=== PATIENT | male | born 1935 | race Caucasian/White ===

== ENCOUNTER 2017-08-31 23:27 | Inpatient (IN) | payer BC, MEDICARE ==
[2017-09-01] MEDS ORDERED: Pantoprazole IV* 40 MG IV ONE (00:01)
[2017-09-01 00:19] LABS: ABS Basophils 0.1 10^3/ul (0-0.2); ABS Eosinophils 0.1 10^3/ul (0-0.6); ABS Lymphocytes 1.4 10^3/ul (1.0-4.8); ABS Monocytes 0.9 10^3/ul (0-0.8); ABS Neutrophils 6.1 10^3/ul (1.5-7.7); ABS Nucleated RBC 0 10^3/ul; Eosinophil % 0.8 % (0-6); Hematocrit 35 % (42-52); Lymphocyte % 16.4 % (25-47); Mean Corpuscular HGB Conc 34 g/dl (31-36); Mean Corpuscular Hemoglobin 32 pg (27-31); Mean Corpuscular Volume 94 fL (80-94); Mean Platelet Volume 8.7 um3 (7.4-10.4); Nucleated Red Blood Cells % 0; Platelet Count 177 10^3/ul (150-450); Red Blood Count 3.72 10^6/ul (4.0-5.4); Red Cell Distribution Width 13 % (10.5-15); White Blood Count 8.6 10^3/ul (3.5-10.8)
[2017-09-01 00:37] LABS: EGFR Non-African American 58.7 (>60)
[2017-09-01] MEDS ORDERED: Clopidogrel TAB* 300 MG PO ONE (00:51)
[2017-09-01] MEDS ORDERED: Enoxaparin(*) 100 MG/ML SYR SUBCUT ONE (00:51)
--- NOTE | 2017-09-01 01:04 | ED ---
Soledad Hill Rebecca, scribed for Manav Sal MD on 09/01/17 at 0001 . HPI Chest Pain - HPI Summary HPI Summary: Pt is an 82 y/o M BIBA who presents to ED c/o midsternal CP without radiation that began suddenly at 2145 while sitting down, relaxing. Pain is characterized as heaviness and was severe at onset, lasting about an hour, and is now mild, ranked 2/10. Pt took 324 mg ASA at home and received 1 SL NTG en route which alleviated sx. Additionally c/o chills. Denies diaphoresis, N/V, SOB. No prior similar episodes. Failed a stress test about 1 month ago due to being unable to bring his heart rate up and had a nuclear one done, results unknown. At home, in [place], [place], is being worked up for dizziness spells with unsteady gait during which his BP does not change. Has a cardiac catheterization scheduled for 1 week from today. - History of Current Complaint Chief Complaint: EDChestWallPain Time Seen by Provider: 08/31/17 23:35 Hx Obtained From: Patient Onset/Duration: Started Hours Ago, Still Present Time of Onset: 21:45 Initial Severity: Severe Current Severity: Mild Pain Intensity: 2 Pain Scale Used: 0-10 Numeric Chest Pain Location: Mid Sternal Chest Pain Radiates: No Character: Heaviness Aggravating Factor(s): Nothing Alleviating Factor(s): Medication Associated Signs and Symptoms: Positive: Chills - Allergy/Home Medications Allergies/Adverse Reactions: Allergies Allergy/AdvReac Type Severity Reaction Status Date / Time No Known Allergies Allergy Verified 08/31/17 23:35 Home Medications: Home Medications Atorvastatin* 10 mg PO DAILY 08/31/17 [History Confirmed 08/31/17] Lisinopril 5 mg PO DAILY 08/31/17 [History Confirmed 08/31/17] Meclizine HCl 12.5 mg PO DAILY PRN 08/31/17 [History Confirmed 08/31/17] PMH/Surg Hx/FS Hx/Imm Hx Endocrine/Hematology History: Denies: Hx Diabetes Cardiovascular History: Denies: Hx Coronary Artery Disease, Hx Hypertension Infectious Disease History: No Infectious Disease History: Denies: Traveled Outside the [place] in Last 30 Days - Family History Known Family History: Negative: Diabetes - Social History Alcohol Use: None Substance Use Type: Reports: None Smoking Status (MU): Never Smoked Tobacco Review of Systems Positive: Chills. Negative: Skin Diaphoresis Positive: Chest Pain Negative: Shortness Of Breath Negative: Vomiting, Nausea All Other Systems Reviewed And Are Negative: Yes Physical Exam - Summary Physical Exam Summary: VITAL SIGNS: Reviewed. GENERAL: ~Patient is a well-developed and nourished male who is lying comfortable in the stretcher. Patient is not in any acute respiratory distress. HEAD AND FACE: No signs of trauma. No ecchymosis, hematomas or skull depressions. No sinus tenderness. EYES: PERRLA, EOMI x 2, No injected conjunctiva, no nystagmus. EARS: Hearing grossly intact. Ear canals and tympanic membranes are within normal limits. MOUTH: Oropharynx within normal limits. NECK: Supple, trachea is midline, no adenopathy, no JVD, no carotid bruit, no c- spine tenderness, neck with full ROM. CHEST: Symmetric, no tenderness at palpation LUNGS: Clear to auscultation bilaterally. No wheezing or crackles. CVS: Bradycardic, S1 and S2 present, no murmurs or gallops appreciated. ABDOMEN: Soft, non-tender. No signs of distention. No rebound no guarding, and no masses palpated. Bowel sounds are normal. EXTREMITIES: FROM in all major joints, no edema, no cyanosis or clubbing. NEURO: Alert and oriented x 3. No acute neurological deficits. Speech is normal and follows commands. SKIN: Dry and warm Triage Information Reviewed: Yes Vital Signs On Initial Exam: Initial Vitals Temp Pulse Resp BP Pulse Ox 99.2 F 56 18 138/70 98 08/31/17 23:35 08/31/17 23:35 08/31/17 23:35 08/31/17 23:35 08/31/17 23:35 Vital Signs Reviewed: Yes Diagnostics - Vital Signs Vital Signs Temp Pulse Resp BP Pulse Ox 08/31/17 23:35 99.2 F 56 18 138/70 98 - Laboratory Result Diagrams: 09/01/17 00:05 09/01/17 00:05 Lab Statement: Any lab studies that have been ordered have been reviewed, and results considered in the medical decision making process. - Radiology CXR Xray Interpretation: No Acute Changes - Pending official report. Radiology Interpretation Completed By: ED Physician - EKG 5909 Cardiac Rate: Bradycardia - 54 bpm EKG Rhythm: Sinus Bradycardia EKG Interpretation: Normal interval. Normal axis. No ischemic changes. Re-Evaluation - Re-Evaluation First Eval Re-Evaluation Time: 00:54 Change: Improved Comment: Pt is asleep with no pain at this time. Chest Pain Course/Dx - Course Assessment/Plan: Pt is an 82 y/o M BIBA who presents to ED c/o midsternal CP characterized as heaviness without radiation that began suddenly at 2145 while sitting down, relaxing. Pain was severe at onset, lasting about an hour, and is now mild, ranked 2/10. Pt took 324 mg ASA at home and received 1 SL NTG en route which alleviated sx. Additionally c/o chills. Denies diaphoresis, N/V, SOB. No prior similar episodes. Failed a stress test about 1 month ago due to being unable to bring his heart rate up and had a nuclear one done, results unknown. At home, in [place], [place], is being worked up for dizziness spells with unsteady gait during which his BP does not change. Has a cardiac catheterization scheduled for 1 week from today. Blood work was done with results including a creatinine of 1.19 and troponin of 0.27. EKG is sinus bradycardia with no ischemic changes. CXR is negative. In the ED course, pt received Plavix, Lovenox, and Protonix. Discussed care of pt with Dr. Lomeli who accepts pt for admission. Pt will be admitted with Dx of nonstemi. He understands and agrees. 40 minutes of critical care time. - Diagnoses Provider Diagnoses: Non-STEMI (non-ST elevated myocardial infarction) - Provider Notifications Discussed Care Of Patient With: Marcella Lomeli Time Discussed With Above Provider: 00:59 Instructed by Provider To: Other - Accepts pt for admission. - Critical Care Time Critical Care Time: 30-74 min - 40 minutes Discharge - Sign-Out/Discharge Documenting (check all that apply): Discharge/Admit/Transfer - Admit - Discharge Plan Condition: Fair Disposition: ADMITTED TO [facility] Referrals: Non Staff,Doctor [Primary Care Provider] - The documentation as recorded by the Soledad holliday Rebecca accurately reflects the service I personally performed and the decisions made by me, Manav Sal MD.
[2017-09-01] MEDS ORDERED: Al Hydrox/Mg Hydrox/Simet LIQ* 30 ML UDC PO PRN (01:22)
[2017-09-01] MEDS ORDERED: Acetaminophen TAB* 325 MG PO PRN (01:22)
[2017-09-01] MEDS ORDERED: Ondansetron 40 MG VIAL* 2 MG/ML 20 ML VIAL IV PRN (01:22)
[2017-09-01] MEDS ORDERED: Docusate CAP* 100 MG PO PRN (01:22)
[2017-09-01] MEDS ORDERED: Senna TAB PO PRN (01:22)
[2017-09-01] MEDS ORDERED: Nitroglycerin 2% OINT* 1 GM PAK TOPICAL ONE (01:25)
[2017-09-01] MEDS: NS 0.9% 1000 ML* 1,000 ML IV SCH ×2 (01:48→07:17)
--- NOTE | 2017-09-01 04:23 | HP ---
CC: Dr. Bakari Camarillo III in [place], [place] * HISTORY AND PHYSICAL: DATE OF ADMISSION: 09/01/17 TIME OF EVALUATION: 0100 PRIMARY CARE PHYSICIAN: Dr. Bakari Camarillo III in [place], [place]. CHIEF COMPLAINT: Chest pain. HISTORY OF PRESENT ILLNESS: This is an 82-year-old male with a past medical history of hyperlipidemia who presents to the emergency room with acute onset of chest pain. The patient states he is visiting in [place] for a week. Normally, he lives in [place], [place] where he has been followed by a harness racing handicapper where a few months ago he was having dizzy spells, he followed up with a neurologist. When the dizzy spells continued, they noted his heart rate was in the 40s. He was evaluated by Cardiology for possible pacemaker. He had an exercise stress test, but they could not elevate his heart rate enough. He had a nuclear stress test about a month ago and he was unsure of the results, but they were planning on doing a cardiac cath on 09/08/17 and to evaluate him for pacemaker placement in the setting of his bradycardia thought to be related to his dizzy spells. This evening, he was in his usual state of health. He ate dinner and he was playing [employer] in his phone around 9:30 p.m. when he began developing severe substernal chest pain, nonradiating, no associated shortness of breath, no nausea, no diaphoresis. He felt cold with tingling of his left fingers, he was concerned that he had some bluish discoloration of his hands. He took 4 baby aspirin with no improvement. At that time, he called EMS for further evaluation. The patient denies any change in his weight. No lower extremity swelling. No recent URI illness. No fever or chills. Otherwise, review of systems is negative. In the emergency room, the patient had labs and imaging. He was noted to have an elevated troponin. He was given Lovenox 90 mg subcu, Protonix 40 mg, and Plavix 300 mg and was referred to the hospitalist service for further evaluation. The patient states his chest pain has significantly improved. He does have a slight twinge in his left-sided chest area. PAST MEDICAL HISTORY: 1. Hyperlipidemia. 2. History of dizzy spells. 3. History of bradycardia. MEDICATIONS: 1. Atorvastatin 10 mg p.o. daily. 2. Lisinopril 5 mg p.o. daily. ALLERGIES: No known drug allergies. FAMILY HISTORY: Mother at the age of 96. She did have a pacemaker placement. Father , unknown. SOCIAL HISTORY: The patient as mentioned lives in [place], [place], with his , Randa, who is his healthcare proxy. He is vacationing in [place] for the week with other bicycle cyclists. 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 He quit smoking 50 years ago. He smoked a pack per day for 10 years. He drinks about 1 beer every few weeks. No illicit drug use. Code status is full code. REVIEW OF SYSTEMS: A 14-point review of systems as mentioned in the HPI. Otherwise, negative. PHYSICAL EXAMINATION GENERAL: In no acute distress, resting comfortably with his at the bedside. VITAL SIGNS: T-max 99.2, pulse rate 49, respiratory rate 16, oxygen saturation 97% on room air, blood pressure 136/65. HEENT: Head: Normocephalic. Pupils are equal and reactive. Anicteric. Oropharynx: Mucous membranes are moist. NECK: Supple. No lymphadenopathy. RESPIRATORY: Clear to auscultation. No wheezes, rhonchi or rales. CARDIAC: Regular rate and rhythm. Soft systolic murmur, most prominent at the left sternal base. No carotid bruits. The patient is noted to have bradycardia. ABDOMEN: Soft, nontender, nondistended. EXTREMITIES: No clubbing, cyanosis or edema. Noted to have significant varicosities over the lower extremity +2 DPs. NEUROLOGICAL: Alert and oriented x3. No gross focal neurologic deficits. DIAGNOSTIC STUDIES/LAB DATA: White count 8.6, hemoglobin 12, hematocrit 35, platelets 177. Sodium 139, potassium 4, chloride 106, bicarb 26, BUN 24, creatinine 1.19, glucose 128. Troponin is 0.27. Radiographic Data: Chest x-ray: Wet read unremarkable. EKG shows sinus bradycardia, flattening of T waves, otherwise unremarkable. No prior EKG to compare. ASSESSMENT: This is an 82-year-old male with past medical history of hyperlipidemia who presents to the emergency room with substernal chest pain and elevated troponin. Chest pain. Assessment: The patient's findings are consistent with an NSTEMI in the setting with elevated troponin and unremarkable EKG. His chest pain has significantly improved. He states he has a slight twinge. He has been worked up for these dizzy spells and question of a pacemaker placement and was actually scheduled to get a cardiac cath next week in [place], [place]. Plan: We will admit him for evaluation of his NSTEMI, keep him n.p.o. We will place a nitro patch on him to help resolve his chest pain. He was initiated on Lovenox in the ER. Follow up with cardiology regarding further anticoagulation. Continue him on a baby aspirin. We will hold off on any beta- blockers in the setting of his bradycardia, check a lipid panel in the morning, and contact Cardiology for consultation for possible and likely catheterization in the morning. CHRONIC MEDICAL PROBLEMS: Hyperlipidemia. Continue his atorvastatin. We will check a lipid panel in the morning. We will hold his lisinopril for now. He does have a small bump in his creatinine. It is unclear what his baseline is. FEN. As mentioned, n.p.o. We will place him on gentle IV fluids. DVT prophylaxis. The patient scores moderate risk. He is on heparin at therapeutic dose. Code status: Full code. PATIENT TIME: Greater than 35 minutes was spent doing history and physical, more than half the time was spent in direct patient contact. [id number]/[facility] #: [id number] TUNDE
[2017-09-01 05:57] LABS: EGFR Non-African American 66.3 (>60)
--- NOTE | 2017-09-01 06:26 | PN ---
Progress Note - Progress Note Date of Service: 09/01/17 Note: Per Dr. Bryant - Hold further lovenox until evaluation by cardiology.
[2017-09-01] MEDS ORDERED: Perflutren Lipid Microsphere* 3 ML VIAL ONE (07:45)
--- NOTE | 2017-09-01 08:01 | RAD ---
INDICATION: Chest pain COMPARISON: None. TECHNIQUE: Single AP portable view of the chest was obtained. FINDINGS: Image quality is compromised due to the relative inferiority of a portable chest x-ray. The heart and mediastinum exhibit normal size and contour. The lungs are grossly clear. There is no evidence of a large pleural effusion. Visualized bones are normal for the patient's age. IMPRESSION: No radiographic evidence for acute cardiopulmonary abnormality on this portable chest x-ray.
[2017-09-01] MEDS: Aspirin 81 mg CHEW TAB* 81 MG TAB.CHEW PO SCH (09:06)
--- NOTE | 2017-09-01 10:17 | PN ---
Subjective Date of Service: 09/01/17 Interval History: Pt is feeling well. He has no further chest pain. No SOB. Objective Active Medications: Acetaminophen (Tylenol Tab*) 650 mg PO Q4H PRN PRN Reason: FEVER/PAIN Al Hydrox/Mg Hydrox/Simethicone (Maalox Plus*) 30 ml PO Q6H PRN PRN Reason: INDIGESTION Aspirin (Aspirin 81 Mg Chew Tab*) 81 mg PO DAILY [facility] Last Admin: 09/01/17 09:06 Dose: 81 mg Atorvastatin Calcium (Lipitor*) 80 mg PO 1700 SHARON Diazepam (Valium Tab(*)) 5 mg PO ONCE ONE Stop: 09/01/17 11:01 Diphenhydramine HCl (Benadryl Po*) 25 mg PO ONCE ONE Stop: 09/01/17 11:01 Docusate Sodium (Colace Cap*) 100 mg PO BID PRN PRN Reason: CONSTIPATION Sodium Chloride (Ns 0.9% 1000 Ml*) 1,000 mls @ 100 mls/hr IV PER RATE [facility] Last Admin: 09/01/17 01:48 Dose: 100 mls/hr Ondansetron HCl (Zofran 40 Mg Vial*) 4 mg IV Q4H PRN PRN Reason: NAUSEA/VOMITING Senna (Senokot Tab*) 1 tab PO BID PRN PRN Reason: CONSTIPATION Vital Signs - 8 hr 09/01/17 09/01/17 09/01/17 02:14 02:58 08:00 Temperature 97.7 F Pulse Rate 54 52 Respiratory 16 16 14 Rate Blood Pressure 147/81 148/56 (mmHg) O2 Sat by Pulse 97 97 Oximetry 09/01/17 08:19 Temperature 97.3 F Pulse Rate 48 Respiratory 16 Rate Blood Pressure 129/57 (mmHg) O2 Sat by Pulse 96 Oximetry Oxygen Devices in Use Now: None Appearance: Elderly male sitting up in bed, NAD Eyes: No Scleral Icterus Ears/Nose/Mouth/Throat: Mucous Membranes Moist Respiratory: Symmetrical Chest Expansion and Respiratory Effort, Clear to Auscultation Cardiovascular: NL Sounds; No Murmurs; No JVD, No Edema, - - bradycardic but regular Abdominal: NL Sounds; No Tenderness; No Distention Extremities: No Clubbing, Cyanosis Skin: No Nodules or Sclerosis Neurological: Alert and Oriented x 3 Result Diagrams: 09/01/17 00:05 06/11/18 05:12 Assess/Plan/Problems-Billing Mr Herrera is an 82 yo M who has a h/o bradycardia (possibly symptomatic as pt has dizzy spells) and HLD who presented to the ER with c/o chest pain while at rest. He was found to have an elevated troponin and was admitted for NSTEMI. - Patient Problems (1) NSTEMI (non-ST elevated myocardial infarction) Current Visit: Yes Status: Acute Code(s): I21.4 - NON-ST ELEVATION (NSTEMI) MYOCARDIAL INFARCTION SNOMED Code(s): 133126459 Comment: The patient's troponin continues to climb. He was seen by Dr. Miller this AM and the plan is for cath today. Will continue ASA and plavix (plavix 300mg was given at 0056 this AM) so if to be continued will need to be ordered for tomorrow AM. No BBlocker as pt is bradycardic. Continue lipitor. (2) HLD (hyperlipidemia) Current Visit: Yes Status: Acute Code(s): E78.5 - HYPERLIPIDEMIA, UNSPECIFIED SNOMED Code(s): 05148034 Comment: Continue lipitor. (3) Bradycardia Current Visit: Yes Status: Acute Code(s): R00.1 - BRADYCARDIA, UNSPECIFIED SNOMED Code(s): 92418768 Comment: The patient has a h/o being bradycardic. He is asymptomatic at this time but he has been having dizzy spells intermittently at home. He was being worked up for possible pacemaker. (4) DVT prophylaxis Current Visit: Yes Status: Acute Code(s): TTG6703 - SNOMED Code(s): 575295751 Comment: pt got 1mg/kd lovenox at 0057 this AM. (5) Full code status Current Visit: Yes Status: Acute Code(s): Z78.9 - OTHER SPECIFIED HEALTH STATUS SNOMED Code(s): 430161470
[2017-09-01] MEDS ORDERED: Diazepam TAB(*) 5 MG PO ONE (11:00)
[2017-09-01] MEDS ORDERED: diPHENhydraMINE PO* 25 MG PO ONE (11:00)
--- NOTE | 2017-09-01 11:10 | ECHO ---
Patient: VANESSA WHITLEY [facility] Rec#: [id number] : 1935 Date: 09/01/2017 Age: 82y Height: 195.58 cm / 77.0 in Weight: 90.72 kg / 199.9 lbs Sex: M BSA: 2.24 Room#: [facility] Admit Date#: 09/01/2017 Type: Inpatient Referring: Marcella Lomeli Reading: Eliezer Miller MD [employer] Trimming Machine Operator: Adrienne Leach [facility] Transthoracic Echocardiogram Indication: NSTEMI BP: 148/56 HR: 52 Rhythm: Bradycardia Findings History: HLD,bradycardia,dizziness. Technical Comments: The study quality is good. Definity used to enhance images. Left Ventricle: The left ventricular chamber size is normal. There is a focal wall motion abnormality present. There is mildly decreased left ventricular systolic function. The estimated ejection fraction is 40-45%. There is no consistent Doppler evidence of clinically significant diastolic dysfunction. The mid anteroseptal, mid anterior, mid anterolateral, apical anterior, and apical lateral wall segments are hypokinetic (score 2). Overall wallmotion score index is 2.00 Left Atrium: The left atrial chamber size is normal. Right Ventricle: The right ventricular cavity size is normal. The right ventricular global systolic function is normal. Right Atrium: The right atrium is mildly dilated. Aortic Valve: The aortic valve appears bicuspid. There is mild aortic regurgitation. There is no evidence of aortic stenosis. Mitral Valve: The mitral valve leaflets appear normal. There is mild mitral regurgitation. There is no evidence of mitral stenosis. Tricuspid Valve: The tricuspid valve leaflets are normal. There is a physiologic tricuspid regurgitation. Unable to estimate the right ventricular systolic pressure. There is no tricuspid stenosis. Pulmonic Valve: The pulmonic valve appears normal. There is trace to mild pulmonic regurgitation. There is no pulmonic stenosis. Pericardium: The pericardium appears normal. Aorta: The ascending aorta is not well visualized. There is mild dilatation of the aortic arch. There is mild dilatation of the aortic root. Pulmonary Artery: The main pulmonary artery appears normal. Venous: The inferior vena cava appears normal in size. There is a greater than 50% respiratory change in the inferior vena cava dimension. Contrast: Definity was used to optimize study. A total of 3 ml used. Intravenous contrast was used to enhance endocardial border definition. Conclusions There is mildly decreased left ventricular systolic function. There is a focal wall motion abnormality present. The estimated ejection fraction is 40-45%. The mid anteroseptal, mid anterior, mid anterolateral, apical anterior, and apical lateral wall segments are hypokinetic (score 2). The right ventricular global systolic function is normal. There is mild aortic regurgitation. There is no evidence of aortic stenosis. There is mild mitral regurgitation. There is a physiologic tricuspid regurgitation. Unable to estimate the right ventricular systolic pressure. The pericardium appears normal. Measurements Name Value Normal Range RVIDd (AP) 2D 2.8 cm (0.9 - 2.6) RVDdMajor (2D) 3.4 cm (2.2 - 4.4) RAd ISD 4CH 5.2 cm (3.4 - 4.9) RA (A4C)W 5.1 cm (2.9 - 4.6) IVSd (2D) 0.7 cm (0.6 - 1) LVPWd (2D) 0.8 cm (0.6 - 1) LVIDd (2D) 4.3 cm (3.6 - 5.4) LVIDs (2D) 3.3 cm - LV FS (2D) 22 % (25 - 45) Aortic Annulus 2 cm (1.4 - 2.6) Ao root diameter (2D) 3.7 cm (2.1 - 3.5) Aortic arch 3.8 cm (1.8 - 3.4) Descending Ao 0.6 cm - LA dimension (AP) 2D 3.7 cm (2.3 - 3.8) LAd ISD 4CH 6 cm (2.9 - 5.3) LA ISD 4CH W 4.6 cm (2.5 - 4.5) Name Value Normal Range LA ESV SP 4CH (A/L) 66 ml - LA ESV SP 2CH (A/L) 60 ml - LA ESV BP (A/L) 63 ml - LA ESV BP (A/L) index 28.3 ml/m2 - LA ESV SP 4CH (MOD) 61 ml - LA ESV SP 2CH (MOD) 57 ml - Name Value Normal Range MV E-wave Vmax 1 m/sec - MV deceleration time 237 msec - MV A-wave Vmax 1.2 m/sec - MV E:A ratio 0.9 ratio - Name Value Normal Range AV Vmax 1.6 m/sec - AV VTI 43.4 cm - AV peak gradient 10.06 mmHg - AV mean gradient 5.22 mmHg - LVOT Vmax 1.5 m/sec - LVOT VTI 31.6 cm - LVOT peak gradient 8.47 mmHg - LVOT mean gradient 2.79 mmHg - AR PHT 900 msec - AR peak gradient 22.12 mmHg - Name Value Normal Range MR Vmax 3.7 m/sec - MR VTI 160.62 cm - Name Value Normal Range IVC diameter 2.1 cm - Name Value Normal Range PV Vmax 0.9 m/sec - PV peak gradient 3.57 mmHg - Wallmotion BAS Not Seen BA Not Seen BAL Not Seen SANDRA Not Seen BI Not Seen BIS Not Seen MAS Hypokinetic MA Hypokinetic MAL Hypokinetic MIL Not Seen WI Not Seen MIS Not Seen Not Seen AA Hypokinetic AL Hypokinetic AI Not Seen APEX Not Seen
[2017-09-01] MEDS ORDERED: fentaNYL* 50 MCG/ML 2 ML VIAL (100 MCG VIAL) ONE (11:57)
[2017-09-01] MEDS ORDERED: Heparin 2 UNITS/ML IVPREMIX* 2,000 ML IV ONE (11:57)
[2017-09-01] MEDS ORDERED: Lidocaine 1% INJ* 10 MG/ML 30 ML SDV ONE (11:57)
[2017-09-01] MEDS ORDERED: Iohexol 350 (CONTRAST) 200 ML MDV IV ONE (11:57)
[2017-09-01] MEDS ORDERED: Heparin(*) 1000 UNIT/ML 10 ML VIAL CATH LAB IV ONE (11:59)
[2017-09-01] MEDS ORDERED: Midazolam* 1 MG/ML 10 ML VIAL (10 MG) ONE (11:59)
[2017-09-01] MEDS ORDERED: VERAPAMIL 2.5 MG/ML 2 ML VIAL ** 5 mg/2 ml ONE (11:59)
[2017-09-01] MEDS ORDERED: nitroGLYCERIN DRIP* 25,000 MCG/250 ML BTL ONE (11:59)
[2017-09-01 12:10] LABS: INR 1.1 (0.77-1.02)
[2017-09-01 12:24] LABS: EGFR Non-African American 85.4 (>60)
[2017-09-01] MEDS ORDERED: Ticagrelor* 90 MG TAB PO ONE (12:46)
[2017-09-01] MEDS ORDERED: Iodixanol* (CONTRAST) 320 MG/ML 100 ML SDV ONE (12:54)
[2017-09-01] MEDS ORDERED: Enoxaparin(*) 100 MG/ML SYR SUBCUT SCH (13:00)
[2017-09-01] MEDS ORDERED: Nitroglycerin TAB 0.4 MG* 0.4 MG TAB SL PRN (13:50)
[2017-09-01] MEDS: NS 0.9% 1000 ML* 1,000 ML IV ONE ×2 (15:59→16:02)
[2017-09-01] MEDS: Atorvastatin* 80 MG TAB PO SCH (18:24)
[2017-09-01] MEDS: Ticagrelor* 90 MG TAB PO SCH (20:25)
--- NOTE | 2017-09-01 22:13 | CONS ---
CC: Dr. Bakari Camarillo III, [facility] [place], [place] * CARDIOLOGY CONSULTATION: DATE OF CONSULT: 09/01/17 INDICATION FOR CONSULT: NSTEMI, chest pain. HISTORY OF PRESENT ILLNESS: The patient is an 82-year-old gentleman with a history of hyperlipidemia, bradycardia, and a history of TIA in the past, who came to the emergency room because of anginal-type chest pain. The patient states that he is from the [facility] and recently underwent a cardiac evaluation, please see below for details. The patient was up in the [place] area while visiting, when he started having chest pain, diaphoresis. The patient continued to have the discomfort and came to the emergency room. In the emergency room, the patient did not have any ischemic EKG changes, but had elevated troponin levels. He was admitted to the hospital with an acute coronary syndrome. The patient does follow with a business administrator in the [facility]. He was noted to have episodes of dizzy spells and was found to have a heart rate down in the 40s. The patient underwent an exercise nuclear stress test, but was unable to achieve heart rate. He subsequently had a chemical stress test, which was reportedly abnormal; I do not have those details. His business administrator set him up for a cardiac catheterization for next week. PAST MEDICAL HISTORY: Significant for hyperlipidemia, bradycardia. OUTPATIENT MEDICATIONS: 1. Atorvastatin 10 mg a day. 2. Lisinopril 5 mg a day. He does not take an aspirin a day. ALLERGIES: No known drug allergies. FAMILY HISTORY: Mother at the age of 96. She did have a history of pacemaker implantation. Father's is of unknown cause. 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 He is . He quit smoking 50 years ago. He does get regular exercise. He drinks 1 beer a week. PHYSICAL EXAM: Height 6 feet 5 inches, weight 210 pounds. Temperature 99.6, heart rate 50, blood pressure 152/65, respiratory rate is 19, oxygen saturation 98% on room air. Sclerae anicteric. Oropharynx is pink without erythema. Carotids are 2+ without bruits. JVD is normal. Thyroid is normal. Cardiac Exam: S1, S2 without any murmurs, rubs, or gallops. PMI is normal. Lungs are clear to auscultation bilateral. There is no dullness to percussion. Abdomen is soft, nontender, nondistended with normoactive bowel sounds. Extremities show no edema. He has 2+ pulses throughout. The patient is awake, alert, and oriented. He moves all 4 extremities equally. DIAGNOSTIC STUDIES/LAB DATA: CBC: Within normal limits, hemoglobin 12, hematocrit 35, platelet count 177. Chemistries within normal limits, BUN 24, creatinine 1.19. AST and ALT are normal. Initial troponin level 0.27, peak troponin level of 4. LDL of 26, HDL of 33, total cholesterol 79. The patient had an echocardiogram, which showed normal LV size with mild to moderately reduced LV systolic function, ejection fraction of 40%. He had mid anterior and distal anterior wall and distal anterolateral wall hypokinesis. Ultimately, we got the report of his stress test. His stress test showed ischemia to his anterior and anteroapical soto. IMPRESSION AND PLAN: This is an 82-year-old gentleman, who is admitted to the hospital with acute coronary syndrome. Again, the patient had abnormal stress test within the last month. Currently, the patient is pain free. His troponins have been rising since his hospitalization. The patient was given Lovenox and Plavix in the emergency room. For now, my recommendation is the patient undergo cardiac catheterization. The risks and benefits of this were described in great detail, and the patient is willing to proceed. [id number]/[facility] #: [id number] MTDD
--- NOTE | 2017-09-02 07:50 | CATH ---
STENT REPORT: DATE OF PROCEDURE: 09/01/17 - ROOM #[id number] INTEGRATED SPECIALIST: Dr. Miller. PROCEDURE PERFORMED: Stent placement, LAD 2.75 x 12, Synergy drug-eluting stent , postdilated with 2.75 x 12 NC to 18 atmospheres. HISTORY: An 82-year-old male visiting from out of town, admitted with troponin - positive ACS/vfs-CN-cglqnzzmo infarct. Recent stress imaging in [place] demonstrated a moderate anteroapical perfusion defect. Diagnostic catheterization by Dr. Miller via the radial approach demonstrated a culprit mid LAD stenosis with calcification as well as intermediate RCA stenosis. The RCA was not treated given the absence of inferior wall ischemia on recent imaging. PROCEDURE ACCESS: Right radial artery sheath 6F slender placed by Dr. Miller. INTERVENTIONAL MEDICATIONS: 1. Heparin 3000 units, 3000 units. 2. Brilinta 180 mg p.o. loading dose. GUIDING CATHETER: 6F VL 3.5, wire 14 BMW. The stent would not cross primarily , therefore the angulated calcified LAD lesion was predilated with a 2.5 x 12 balloon to full expansion at 12 atmospheres. The LAD was then stented with a 2.75 x 12 Synergy drug-eluting stent deployed at 11 atmospheres, and then postdilated with a 2.75 x 12 NC balloon to 18 atmospheres for a total of 49 seconds. A hemostatic band was used for hemostasis. HEMODYNAMICS: For the diagnostic portion, see Dr. Miller's report. Final BP 139 /65. ANGIOGRAPHY: For the diagnostic portion, see Dr. Miller's report. Pre- intervention, the LAD had a fairly short but angulated calcified 80% stenosis after the first diagonal, proximal to the first septal. After stent placement, there is no residual stenosis, there is MARQUISE 3 flow, no dissection. CONCLUSION: Culprit LAD stenosis with non-ST elevation infarct presentation, excellent angiographic results with drug-eluting stent placement. [id number]/[facility] #: [id number] [facility]
[2017-09-02] MEDS: Ticagrelor* 90 MG TAB PO SCH ×2 (08:30→20:07)
[2017-09-02] MEDS: Aspirin 81 mg CHEW TAB* 81 MG TAB.CHEW PO SCH (08:30)
--- NOTE | 2017-09-02 13:23 | CATH ---
CARDIAC CATHETERIZATION NOTE: DATE OF PROCEDURE: 09/01/17 PROCEDURE: Cardiac catheterization including coronary angiography. INDICATION: NSTEMI, chest pain. The patient is an 82-year-old gentleman with very little past medical history who was admitted to the hospital with chest pain. He had elevated troponin levels. The patient had no ischemic EKG changes. His echocardiogram showed severe anterior apical hypokinesis with ejection fraction of 40% to 45%. Cardiac catheterization was recommended. DESCRIPTION OF PROCEDURE: The patient was brought to the cardiac catheterization lab in a fasting st ate. Informed consent had been obtained prior to the procedure. All labs had been reviewed. The pat ient was placed supine in the catheterization table. His right wrist area was prepped and draped in the usual fashion. 1% lidocaine was used for local anesthesia. The right radial artery was entered by a Seldinger technique and a guidewire was placed. Over the guidewire, a 6-Cypriot hydrophilic de santiago th was placed. The patient had an infusion of heparin, verapamil, and nitroglycerin. The patient underwent coronary angiography using a 6-Cypriot TIG catheter. At the end of the procedur e, the patient underwent stenting of his LAD. Please see that report from Dr. Mackay. A total of 4. 2 minutes of fluoro time was used. A total of 50 cc of Visipaque dye was used. FINDINGS: Left main: The left main was very short. It quickly bifurcated into the LAD and circumfle x. There was no evidence of stenosis. Left anterior descending artery: The LAD was normal in size. It gave off 2 diagonal vessels. The p roximal low LAD had minimal calcification. No evidence of stenosis. The first diagonal vessel was w ithout disease. Just after the first diagonal, there was an eccentric 80% stenosis of the LAD. It w as mildly calcified. The remainder of the LAD was without disease. Left circumflex artery: The circumflex artery was normal in size. It gave off 2 obtuse marginal bra nches. There was no evidence of stenosis. Right coronary artery: The RCA was normal in size. It was a dominant vessel. It gave off PDA. The proximal RCA had a 40% stenosis. The mid right coronary artery had a 60% stenosis with a small aneu rysmal formation after the stenosis. The remainder of the vessel was without disease. IMPRESSION: 1. Critical stenosis of the mid LAD just after the diagonal vessel with an 80%. 2. A 60% stenosis of the mid right coronary artery with a small aneurysmal formation just after the stenosis. 3. No evidence of coronary artery disease in the left circumflex artery. RECOMMENDATIONS: The patient will undergo angioplasty and stenting of his LAD with Dr. Mackay. [id number]/[facility] #: [id number]
--- NOTE | 2017-09-02 14:30 | PN ---
Subjective Date of Service: 09/02/17 Interval History: Pt is feeling well. He has no chest pain/SOB. He has not been up walking much today. Objective Active Medications: Acetaminophen (Tylenol Tab*) 650 mg PO Q4H PRN PRN Reason: FEVER/PAIN Al Hydrox/Mg Hydrox/Simethicone (Maalox Plus*) 30 ml PO Q6H PRN PRN Reason: INDIGESTION Aspirin (Aspirin 81 Mg Chew Tab*) 81 mg PO DAILY [facility] Last Admin: 09/02/17 08:30 Dose: 81 mg Atorvastatin Calcium (Lipitor*) 80 mg PO 1700 [facility] Last Admin: 09/01/17 18:24 Dose: 80 mg Docusate Sodium (Colace Cap*) 100 mg PO BID PRN PRN Reason: CONSTIPATION Nitroglycerin (Nitroglycerin Tab 0.4 Mg*) 0.4 mg SL Q5M PRN PRN Reason: ANGINA Ondansetron HCl (Zofran 40 Mg Vial*) 4 mg IV Q4H PRN PRN Reason: NAUSEA/VOMITING Senna (Senokot Tab*) 1 tab PO BID PRN PRN Reason: CONSTIPATION Ticagrelor (Brilinta*) 90 mg PO BID [facility] Last Admin: 09/02/17 08:30 Dose: 90 mg Vital Signs - 8 hr 09/02/17 09/02/17 09/02/17 07:00 07:36 08:00 Temperature 100 F Pulse Rate 44 48 Respiratory 16 10 Rate Blood Pressure 120/58 123/51 (mmHg) O2 Sat by Pulse 96 93 Oximetry 09/02/17 09/02/17 09/02/17 09:00 10:00 10:01 Temperature Pulse Rate 51 51 53 Respiratory 26 18 12 Rate Blood Pressure 140/51 126/59 (mmHg) O2 Sat by Pulse 97 96 97 Oximetry 09/02/17 09/02/17 09/02/17 11:00 12:00 12:34 Temperature 98.6 F 98.0 F Pulse Rate 48 45 51 Respiratory 18 19 16 Rate Blood Pressure 125/56 137/59 142/54 (mmHg) O2 Sat by Pulse 97 99 100 Oximetry 09/02/17 12:52 Temperature 98 F Pulse Rate 51 Respiratory 16 Rate Blood Pressure 142/54 (mmHg) O2 Sat by Pulse 100 Oximetry Oxygen Devices in Use Now: None Appearance: Elderly male sitting up in a chair, NAD Eyes: No Scleral Icterus Ears/Nose/Mouth/Throat: Mucous Membranes Moist Respiratory: Symmetrical Chest Expansion and Respiratory Effort, Clear to Auscultation Cardiovascular: NL Sounds; No Murmurs; No JVD, RRR, No Edema, - - R wrist with small hematoma Abdominal: NL Sounds; No Tenderness; No Distention Extremities: No Clubbing, Cyanosis Skin: No Nodules or Sclerosis Neurological: Alert and Oriented x 3 Result Diagrams: 09/01/17 00:05 09/02/17 05:03 Microbiology and Other Data: Microbiology 09/01/17 16:30 Nasal Screen MRSA (PCR)(VIVI) - Final Nasal Mrsa Not Detected Assess/Plan/Problems-Billing Mr Herrera is an 82 yo M who has a h/o bradycardia (possibly symptomatic as pt has dizzy spells) and HLD who presented to the ER with c/o chest pain while at rest. He was found to have an elevated troponin and was admitted for NSTEMI. - Patient Problems (1) NSTEMI (non-ST elevated myocardial infarction) Current Visit: Yes Status: Acute Code(s): I21.4 - NON-ST ELEVATION (NSTEMI) MYOCARDIAL INFARCTION SNOMED Code(s): 285621302 Comment: Trop peaked at 16.36. He received a stent to the LAD. He will continue ASA and brilinta. Continue lipitor. No BBlocker secondary to bradycardia, will resume lisinopril today. (2) HLD (hyperlipidemia) Current Visit: Yes Status: Acute Code(s): E78.5 - HYPERLIPIDEMIA, UNSPECIFIED SNOMED Code(s): 47060073 Comment: Continue lipitor at higher dose. (3) Bradycardia Current Visit: Yes Status: Acute Code(s): R00.1 - BRADYCARDIA, UNSPECIFIED SNOMED Code(s): 50078199 Comment: The patient has a h/o being bradycardic. He is asymptomatic at this time but he has been having dizzy spells intermittently at home. He was being worked up for possible pacemaker. (4) DVT prophylaxis Current Visit: Yes Status: Acute Code(s): SCW6153 - SNOMED Code(s): 100226715 Comment: start SQ heparin tonight (5) Full code status Current Visit: Yes Status: Acute Code(s): Z78.9 - OTHER SPECIFIED HEALTH STATUS SNOMED Code(s): 098214685
[2017-09-02] MEDS: Atorvastatin* 80 MG TAB PO SCH (16:59)
[2017-09-02] MEDS: Heparin VIAL(*) 5000 UNITS/ML VIAL (FIVE THOUSAND) SUBCUT SCH (20:03)
[2017-09-03 08:08] VITALS: BP 129/55
[2017-09-03] MEDS: Aspirin 81 mg CHEW TAB* 81 MG TAB.CHEW PO SCH (08:08)
[2017-09-03] MEDS: Ticagrelor* 90 MG TAB PO SCH (08:09)
[2017-09-03] MEDS: Heparin VIAL(*) 5000 UNITS/ML VIAL (FIVE THOUSAND) SUBCUT SCH (08:11)
[2017-09-03] MEDS ORDERED: Lisinopril TAB* 5 MG PO SCH (09:00)
--- NOTE | 2017-09-03 09:47 | PN ---
Subjective Date of Service: 09/03/17 - CC: CP, resolved Interval History: The patient denies recurrence of chest pain. No dizziness. No pain in hand/wrist. Wants to get out of the hospital. Medications Active Medications: Acetaminophen (Tylenol Tab*) 650 mg PO Q4H PRN PRN Reason: FEVER/PAIN Al Hydrox/Mg Hydrox/Simethicone (Maalox Plus*) 30 ml PO Q6H PRN PRN Reason: INDIGESTION Aspirin (Aspirin 81 Mg Chew Tab*) 81 mg PO DAILY [facility] Last Admin: 09/03/17 08:08 Dose: 81 mg Atorvastatin Calcium (Lipitor*) 80 mg PO 1700 [facility] Last Admin: 09/02/17 16:59 Dose: 80 mg Docusate Sodium (Colace Cap*) 100 mg PO BID PRN PRN Reason: CONSTIPATION Heparin Sodium (Porcine) (Heparin Vial(*)) 5,000 units SUBCUT Q12HR [facility] Last Admin: 09/03/17 08:11 Dose: Not Given Lisinopril (Prinivil Tab*) 5 mg PO DAILY [facility] Last Admin: 09/03/17 08:08 Dose: 5 mg Nitroglycerin (Nitroglycerin Tab 0.4 Mg*) 0.4 mg SL Q5M PRN PRN Reason: ANGINA Ondansetron HCl (Zofran 40 Mg Vial*) 4 mg IV Q4H PRN PRN Reason: NAUSEA/VOMITING Senna (Senokot Tab*) 1 tab PO BID PRN PRN Reason: CONSTIPATION Ticagrelor (Brilinta*) 90 mg PO BID [facility] Last Admin: 09/03/17 08:09 Dose: 90 mg Objective Vital Signs: Temp Pulse Resp BP Pulse Ox 100.1 F 48 16 129/55 98 09/03/17 08:03 09/03/17 08:03 09/03/17 08:03 09/03/17 08:03 09/03/17 08:03 Oxygen Devices in Use Now: None Appearance: Tall lean elderly male, lying 40 degrees, comfortable in appearance. Eyes: No Scleral Icterus, PERRLA Ears/Nose/Mouth/Throat: NL Teeth, Lips, Gums, Mucous Membranes Moist Neck: NL Appearance and Movements; NL JVP, Trachea Midline Respiratory: Symmetrical Chest Expansion and Respiratory Effort, Clear to Auscultation Cardiovascular: NL Sounds; No Murmurs; No JVD, RRR Abdominal: NL Sounds; No Tenderness; No Distention Extremities: No Edema - Right wrist cath site healing well, good distal radial pulse. Skin: No Rash or Ulcers Neurological: Alert and Oriented x 3, NL Gait Lines/Tubes/Other Access: Clean, Dry and Intact Peripheral IV Laboratory Results: 09/02/17 05:03 INR (Anticoag Therapy) 1.10 (0.77-1.02) H 09/01/17 11:45 APTT 33.5 seconds (26.0-36.3) 09/01/17 11:45 Total Bilirubin 0.50 mg/dL (0.2-1.0) 09/01/17 00:05 AST 33 U/L (13-39) 09/01/17 00:05 ALT 24 U/L (7-52) 09/01/17 00:05 Alkaline Phosphatase 42 U/L (34-104) 09/01/17 00:05 Total Protein 6.5 g/dL (6.4-8.9) 09/01/17 00:05 Albumin 3.7 g/dL (3.2-5.2) 09/01/17 00:05 Globulin 2.8 g/dL (2-4) 09/01/17 00:05 Albumin/Globulin Ratio 1.3 (1-3) 09/01/17 00:05 Triglycerides 96 mg/dL 09/01/17 05:12 Cholesterol 79 mg/dL 09/01/17 05:12 LDL Cholesterol 26 mg/dL 09/01/17 05:12 HDL Cholesterol 33.4 mg/dL 09/01/17 05:12 09/01/17 09/01/17 09/01/17 03:03 05:12 11:57 Troponin I 1.65 H* 4.11 H* 14.05 H* 09/01/17 09/02/17 20:30 01:55 Troponin I 16.36 H* 12.81 H* Diagnostic Imaging: Cardiac Catheterzation 09/01/17: 95% LAD occlusion to stent 60% RCA occlusion, medical management. Echo: EF 40-45%, anterior wall hypok. EKG Data: 09/03/17: sinus bradycardia 50 bpm, deeply inverted T waves precordial leads ( present on admission, biphasic yesterday, back today). Assessment/Plan 82 yo who presented with CP, NSTEMI, peak troponin of 16 found to have 2 vessel CAD, now day 2 post stenting to LAD and on medical management for moderate RCA occlusion. 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 CAD: CP free post stent. OK for discharge on current medications. I emphasized the importance of taking Brilinta, new medications even though traveling. Agree with aggressive lipid lowering and LDL well controlled. BP adequate control. For RCA lesion, pain free, can f/u with primary yardage tufting machine operator. Cardiomyopathy: Continue ACEI May improve post stent, can f/u with regular yardage tufting machine operator. Bradycardia: Mild, not dizzy, plan follow up with his regular yardage tufting machine operator.
--- NOTE | 2017-09-03 14:06 | DS ---
CC: Dr. Bakari Camarillo at [facility], fax# [phone] * CC: Dr. Shruthi Saenz at [facility] in [facility], fax# [phone] * DISCHARGE SUMMARY: DATE OF ADMISSION: 09/01/17 DATE OF DISCHARGE: 09/03/17 PRIMARY CARE PROVIDER: Dr. Bakari Camarillo at [facility]. CREDIT REVIEW ANALYST: Dr. Shruthi Saenz at [facility]. PRINCIPAL DIAGNOSIS: Weo-GW-yyjgviyja myocardial infarction. SECONDARY DIAGNOSES: 1. Hyperlipidemia. 2. Hypertension. DISCHARGE MEDICATIONS: 1. Meclizine 12.5 mg p.o. daily p.r.n. dizziness. 2. Lisinopril 5 mg p.o. daily. 3. Brilinta 90 mg p.o. twice daily (new). 4. Lipitor 80 mg p.o. q.h.s. (new). 5. Aspirin 81 mg p.o. daily (new). HOSPITAL COURSE: Mr. Puckett is an 82-year-old who was visiting the [facility] when he suddenly developed severe substernal chest pain that was nonradiating and not associated with any shortness of breath, nausea, or diaphoresis. He felt as if his fingers were cold and tingly and slightly cyanotic and therefore he presented to the emergency room for evaluation. In the emergency room, the patient was noted to have an elevated troponin of 0.27. He was treated with Lovenox, Protonix and 300 mg of Plavix. The patient was admitted to the hospitalist service for management of the yqr-VK-ayqfezgrg CA. Cardiology consultation performed later that day indicated the need for cardiac catheterization. The patient ultimately underwent cardiac catheterization and stenting to an LAD lesion. The patient has been doing quite well postcardiac catheterization. He also underwent transthoracic echocardiogram which revealed an estimated ejection fraction of 40% to 45% with mid anteroseptal, mid anterior , mid anterolateral, apical anterior, and apical lateral wall segments being hypokinetic. The right ventricular global systolic function was reported to be normal. There was evidence of mild aortic regurgitation, no aortic stenosis, mild mitral regurgitation and physiologic tricuspid regurgitation. The right ventricular systolic pressure was unable to be estimated. The patient has been up and ambulating without any difficulty or chest pain since his catheterization. The catheterization was done through a right radial approach. There was a small hematoma noted to the right wrist; however, this is not causing any issues for the patient at this point and has not worsened. The patient has been started on Brilinta and a baby aspirin. His Lipitor dose has been increased from 10 mg nightly to 80 mg nightly. On the day of discharge, the patient was awake, alert, and oriented sitting up in bed in no acute distress. His blood pressure is 129/55, pulse of 48, respirations 16, a temperature of 100.1 and an O2 saturation of 98% on room air. The patient's cardiac exam revealed a normal S1, S2, the heart rate is bradycardic but regular. There is no lower extremity edema. Pulmonary reveals clear lungs bilaterally. Abdomen is soft, nontender, nondistended. Of note, the patient has been having low- grade fevers. Earlier on his hospitalization on 09/01/17 through the community director of 09/02/17, his temperature peaked at 101.1. The patient is showing no clear signs of infection. His chest x-ray from admission does not reveal any radiographic evidence for acute cardiopulmonary abnormality. The patient has no specific complaints consistent with infection either. The patient will be asked to follow up with his director of analytics in 2 to 3 days upon returning home and with his primary care provider within 7 to 10 weeks. If he continues to have fevers, I am going to ask him to be evaluated sooner. FOLLOWUP CONCERNS: The patient is being discharged to home today 09/03/17. ACTIVITY LEVEL: Per post cath instructions. DIET: Low fat. CONDITION ON DISCHARGE: Stable. TIME SPENT: Forty minutes was spent discharging this patient. [id number]/[facility] #: [id number] TUNDE
== END 2017-09-03 11:00 | disposition home or self-care (01) | DRG 247 ==
LOC: ED 23:27 → MEDTELE 09-01 01:22 → ICU 09-01 15:50 → MEDTELE 09-02 12:37
PROVIDERS: ADMIT Pediatrics; ATTEND Hospitalist
PROC: 027034Z Dilation of Coronary Artery, One Artery with Drug-eluting Intraluminal Device, Percutaneous Approach (ICD-10-PCS; 2017-09-01)
PROC: B2111ZZ Fluoroscopy of Multiple Coronary Arteries using Low Osmolar Contrast (ICD-10-PCS; 2017-09-01)
PROC: 4A023N7 Measurement of Cardiac Sampling and Pressure, Left Heart, Percutaneous Approach (ICD-10-PCS; principal; 2017-09-01 11:30)
DX: I21.4 Non-ST elevation (NSTEMI) myocardial infarction (principal); I42.9 Cardiomyopathy, unspecified; E78.5 Hyperlipidemia, unspecified; I10 Essential (primary) hypertension; I08.3 Combined rheumatic disorders of mitral, aortic and tricuspid valves; S60.211A Contusion of right wrist, initial encounter; X58.XXXA Exposure to other specified factors, initial encounter; Y92.239 Unspecified place in hospital as the place of occurrence of the external cause; I25.10 Atherosclerotic heart disease of native coronary artery without angina pectoris; R42 Dizziness and giddiness; Z95.0 Presence of cardiac pacemaker; Z87.891 Personal history of nicotine dependence; Z79.82 Long term (current) use of aspirin; Z79.02 Long term (current) use of antithrombotics/antiplatelets; Z72.89 Other problems related to lifestyle
CPT/HCPCS: 36415; 71045; 80048; 80053; 80061; 83605; 83735; 84484; 85025; 85610; 85730; 87641; 93005; 93306; 93454; 99156; 99157; 99284; A9270-GY; C1725; C1769; C1876; C1887; C8929; C9600-LD; J1644; J1650; J2250; J3010